=== PATIENT | female | born 1950 | race Caucasian/White ===

== ENCOUNTER 2025-05-23 14:16 | Outpatient (CLI) | payer MEDICARE, SELFPAY ==
--- OUTSIDE RECORDS SUMMARY | 2025-05-23 14:20 | XMS_ITS | Encounter Summary ---
Author Organization [facility] Address [address] [place] [address] Care Team Providers Care Welt Sole Layer Name Role Phone Unavailable Primary Care Provider Unavailabl e Encounter Details Date Type Department Care Team (Late st Contact Info) Description 08/10/2004 Historical Encounter Global Sarkis Nash MD Social History Tobacco Use Types Packs/Day Years Used Date Smoking Tobacco: Never Assessed Comments Unknown Sex and Gender Information Value Date Recorded Sex Assigned at Not on file Legal Sex Female 7:30 PM EST Gender Identity Not on file Sexual Orientation Not on file documented as of this encounter Plan of Treatment Not on file documented as of this encounter Visit Diagnoses Not on filedocumented in this encounter Additional Health Concerns Infection Onset Date Last Indicated Resolved Time Covid-19 (rule out) 02/20/2021 02/20/2021 02/22/20 21 3:01 AM EDT Covid-19 (confirmed) 04/12/2021 04/12/2021 021 10:12 PM EST documented as of this encounter
--- OUTSIDE RECORDS SUMMARY | 2025-05-23 14:20 | XMS_ITS | Encounter Summary ---
Author Organization [facility] Address [address] [place] [address] Care Team Providers Care Capacitor Tester Name Role Phone Unavailable Primary Care Provider Unavailabl e Encounter Details Date Type Department Care Team (Late st Contact Info) Description 11/04/2003 Historical Encounter Global Wil Eber Social History Tobacco Use Types Packs/Day Years [...]
--- OUTSIDE RECORDS SUMMARY | 2025-05-23 14:20 | XMS_ITS | Encounter Summary ---
Author Organization [facility] Address [address] [place] [address] Care Team Providers Care Family Health Nurse Practitioner Name Role Phone Unavailable Primary Care Provider Unavailabl e Encounter Details Date Type Department Care Team (Late st Contact Info) Description 02/17/2004 Historical Encounter Global Augusto Allen MD [facility]5 [facility] [address] [place] [address] Social History Tobacco Use Types Packs/Day Years [...]
--- OUTSIDE RECORDS SUMMARY | 2025-05-23 14:20 | XMS_ITS | Encounter Summary ---
Author Organization [facility] Address [address] [place] [address] Care Team Providers Care Urogynaecologist Name Role Phone Unavailable Primary Care Provider Unavailabl e Encounter Details Date Type Department Care Team (Late st Contact Info) Description 03/01/2004 Historical Encounter Global Augusto Allen MD [facility]5 [facility] [address] [place] [address] Social History Tobacco Use Types Packs/Day Years [...]
--- OUTSIDE RECORDS SUMMARY | 2025-05-23 14:20 | XMS_ITS | Encounter Summary ---
Author Organization [facility] Address [address] [place] [address] Care Team Providers Care Logistics Team Leader Name Role Phone Unavailable Primary Care Provider Unavailabl e Encounter Details Date Type Department Care Team (Late st Contact Info) Description 01/06/2004 [facility] [place] [place] Social History Tobacco Use Types Packs/Day Years [...]
--- OUTSIDE RECORDS SUMMARY | 2025-05-23 14:20 | XMS_ITS | Encounter Summary ---
Author Organization [facility] Address [address] [place] [address] Care Team Providers Care Ip Paralegal Name Role Phone Unavailable Primary Care Provider Unavailabl e Encounter Details Date Type Department Care Team (Late st Contact Info) Description 11/28/2004 Historical Encounter Global Sarkis Nash MD Social [...]
--- OUTSIDE RECORDS SUMMARY | 2025-05-23 14:20 | XMS_ITS | Encounter Summary ---
Author Organization [facility] Address [address] [place] [id number] Care Team Providers Care Advertising Associate Name Role Phone Unavailable Primary Care Provider Unavailabl e Reason for Referral * Radiology Services (Routine) - Closed Specialty Diagnoses / Procedures Referred By Contac t Referred To Contact Diagnoses Aneurysm, aorta, thoracic Procedures CT Angiogram Chest W WO Contrast Merline Anderson PA-C [address] [place] [address] Phone: tel: fax: Referral ID Status Reason Start Date Expiration Date Visits Re quested Visits Authorized [id number] Closed 01/18/2020 01/17/2021 1 1 Encounter Details Date Type Department Care Team (Latest Contact Info) Description 01/18/2020 Transcribe Orders [facility] [address] [place] [address] Merline Anderson PA-C [address] [place] [address] Aneurysm, aorta, thoracic (Primary Dx) Social History Tobacco Use Types Packs/Day Years Used Date Smoking Tobacco: Never Assessed Comments Unknown Sex and Gender Information Value Date Recorded Sex Assigned at Not on file Legal Sex Female 7:30 PM EST Gender Identity Not on file Sexual Orientation Not on file documented as of this encounter Plan of Treatment Scheduled Orders Name Type Priority Associated Diagnoses Orde r Schedule CT Angiogram Chest W WO Contrast Imaging Routine Aneurysm, Aorta, Thoracic 1 Occurrences starting 01/18/2020 until 01/17/2021 documented as of this encounter Visit Diagnoses Diagnosis Aneurysm, aorta, thoracic- Primary Thoracic aneurysm without mention of rupture documented in this encounter Additional Health Concerns Infection Onset Date Last Indicated Resolved Time Covid-19 (rule out) 02/20/2021 02/20/2021 02/22/20 21 3:01 AM EDT Covid-19 (confirmed) 04/12/2021 04/12/2021 021 10:12 PM EST documented as of this encounter
--- OUTSIDE RECORDS SUMMARY | 2025-05-23 14:21 | XMS_ITS | Encounter Summary ---
Author Organization [facility] Address [address] [place] [address] Care Team Providers Care Frame Stripper And Crusher Name Role Phone Unavailable Primary Care Provider Unavailabl e Encounter Details Date Type Department Care Team (Late st Contact Info) Description 07/16/2003 Historical Encounter Global Franklyn Marcos MD [address] [place] [address] Social History Tobacco Use Types Packs/Day Years [...] 21 3:01 AM EDT Covid-19 (confirmed) 04/12/2021 04/12/202107/11/ 021 10:12 PM EST documented as of this encounter
--- OUTSIDE RECORDS SUMMARY | 2025-05-23 14:21 | XMS_ITS | Encounter Summary ---
Author Organization [facility] Address [address] [place] [address] Care Team Providers Care Commercial Fisher Name Role Phone Unavailable Primary Care Provider Unavailabl e Encounter Details Date Type Department Care Team (Late st Contact Info) Description 07/19/2003 Historical Encounter Vinnie Duran Social History Tobacco Use Types Packs/Day Years [...]
--- OUTSIDE RECORDS SUMMARY | 2025-05-23 14:21 | XMS_ITS | Clinical Summary ---
Author Organization [facility] Address [address] [place] [address] Care Team Providers Care Chemical Research Technician Name Role Phone Unavailable Primary Care Provider Unavailabl e Social History Tobacco Use Types Packs/Day Years Used Date Smoking Tobacco: Never Assessed Comments Unknown Sex and Gender Information Value Date Recorded Sex Assigned at Not on file Legal Sex Female 7:30 PM EST Gender Identity Not on file Sexual Orientation Not on file Plan of Treatment Health Maintenance Due Date Last Done Comments COLOGUARD 1950 COLONOSCOPY 1950 Colorectal Screening Combination 1950 FIT 1950 HEP C SCREENING 1950 SIGMOIDOSCOPY 1950 ANNUAL WELLNESS EXAM 1953 DTAP/TDAP/TD VACCINE (1 - Tdap) 1969 PNEUMOCOCCAL VACCINE 65+ YEA RS (1 of 1 - PCV) 2000 Shingles Vaccine (Shingrix) (1 of 2) 2000 DEXA SCAN EVERY 2 YR (Osteop orosis Screen) 11/21/2015 INFLUENZA VACCINE (#1) 2025 HEP A VACCINE Aged Out No longer elig ible based on patient's age to complete this topic HIB VACCINE Aged Out No longer eligi ble based on patient's age to complete this topic ROTOVIRUS VACCINE Aged Out No longer eligible based on patient's age to complete this topic Insurance MEDICARE [place] [id number]
--- OUTSIDE RECORDS SUMMARY | 2025-05-23 14:21 | XMS_ITS | Encounter Summary ---
Author Organization [facility] Address [address] [place] [address] Care Team Providers Care Napkin Machine Operator Name Role Phone Unavailable Primary Care Provider Unavailabl e Encounter Details Date Type Department Care Team (Late st Contact Info) Description 10/15/2003 Historical Encounter Global Wil Eber Social History [...]
--- OUTSIDE RECORDS SUMMARY | 2025-05-23 14:21 | XMS_ITS | Clinical Summary ---
Author Organization [facility] Address [address] [place] [address] Care Team Providers Care Dietitian Research Name Role Phone Requested, Unlisted Smyer Primary Care Provider Unavailable Source Comments [facility] is fully rolled out with thefollowing exceptions:General Clinical Research [facility] Allergies Active Allergy Reactions Criticality Noted Date Comments Iodinated Diagnostic Agents 06/26/20 IV contrast Latex Blisters High 06/26/2018 Penicillins 06/26/2018 Sulfa Antibiotics 06/26/2018 Topamax 06/26/2018 Medications hydroCHLOROthiaz bear (ESIDRIX) 12.5 MG capsule Take 25 mg by mouth 1 time a day. Active aspirin (ASA) 325 MG tablet Take 325 mg by mouth 1 time a day. Active loratadine (CLARITIN) 10 MG tablet Take 10 mg by mouth 1 time a day. Active Family History Medical History Relation Name Comments ICD (Defibrillator) Brother 1 Other Brother 1 aortic rupture, aortic valve replacement Pacemaker Brother 1 Other Brother 2 brain aneursym Other Father CHF Heart Attack Maternal Uncle Heart Attack Mother Childhood Heart Disease Neg Hx Childhood heart surgery Neg Hx Relation Name Status Comments Brother 1 Brother 2 Father Maternal Uncle Mother Social History Tobacco Use Types Packs/Day Years Used Date Smoking Tobacco: Former Smokeless Tobacco: Never Intimate Partner Violence Answer Date R ecorded Safe in relationship? (up to 18) Not on file 06/26/2018 If you are in a relationship , do you feel safe in that relationship? Yes 06/26/2018 Safety and Environment Answer Date Rick rded Abuse or neglect worry (Parent/Guardian) Not on file 06/26/2018 Adult hurting you or family (11-18) Not on file 06/26/2018 Someone touched you in a sexual way? (07-12) Not on file 06/26/2018 Is someone hurting your or your family? No 06/26/2018 Historical abuse worry Not on file 8 If you have firearms in the home, are they all in locked storage AND unloaded? Not on file 06/26/2018 Comments Unknown Sex and Gender Information Value Date Recorded Sex Assigned at Not on file Legal Sex Female 11:27 AM EDT Gender Identity Not on file Sexual Orientation Not on file Last Filed Vital Signs Vital Sign Reading Time Taken Comments Blood Pressure 135/89 06/26/2018 10:47 AM EDT Pulse 75 06/26/2018 10:47 AM EDT Temperature - - Respiratory Rate 14 06/26/2018 10:47 AM EDT Oxygen Saturation - - Inhaled Oxygen Concentration - - Weight 84.9 kg (187 lb 2.7 oz) 06/26/2018 10:47 AM EDT Height 163.3 cm (5' 4.29 ) 06/26/2018 10:47 AM E DT Body Mass Index 31.84 06/26/2018 10:47 AM EDT Plan of Treatment Health Maintenance Due Date Last Done Comments MMR IMMUNIZATION (1 of 1 - S tandard series) 11/21/1951 DTAP/Tdap/Td IMMUNIZATION (1 - Tdap) 1957 VARICELLA IMMUNIZATION (1 of 2 - 13+ 2-dose series) 11/21/1963 AMB SEASONAL FLU VACCINE (#1) 04/25/2025 COVID-19 Vaccine ( - 2023-2 5 season) 2025 Respiratory Syncytial Virus (RSV) >60yo or (1 - 1-dose 75+ series) 2025 HEPATITIS B IMMUNIZATION Aged Out No longer eligible based on patient's age to complete this topic HIB IMMUNIZATION Aged Out No longer e ligible based on patient's age to complete this topic HPV IMMUNIZATION Aged Out No longer e ligible based on patient's age to complete this topic IPV IMMUNIZATION Aged Out No longer e ligible based on patient's age to complete this topic MCV4 IMMUNIZATION Aged Out No longer eligible based on patient's age to complete this topic MENINGOCOCCAL B VACCINE Aged Out No l onger eligible based on patient's age to complete this topic Respiratory Syncytial Virus (RSV) <20mo Aged Out No longer eligible b ased on patient's age to complete this topic Insurance MEDICARE Care Teams Dietitian Research Relationship Specialty Start Date End Date Requested, Unlisted Muna PCP - General HB Claims 06/26/18
== END 2025-05-23 23:59 | disposition home or self-care (01) ==
LOC: RT 14:18
PROVIDERS: Visit Provider Internal Medicine
DX: I48.91 Unspecified atrial fibrillation (principal); I49.3 Ventricular premature depolarization; I50.20 Unspecified systolic (congestive) heart failure; R94.31 Abnormal electrocardiogram [ECG] [EKG]
CPT/HCPCS: 93225; 93227

== ENCOUNTER 2025-05-25 11:53 | Outpatient (CLI) | payer MEDICARE, SELFPAY ==
--- OUTSIDE RECORDS SUMMARY | 2025-05-25 12:39 | XMS_ITS | Encounter Summary ---
Author Organization [facility] Address [address] [place] [address] Care Team Providers Care Eligibility Examiner Name Role Phone Unavailable Primary Care Provider Unavailabl e Encounter Details Date Type Department Care Team (Late st Contact Info) Description 02/17/2004 Historical Encounter Global Augusto Allen MD [facility]5 [facility] [address] [place] [address] Social History Tobacco Use Types Packs/Day Years [...]
--- OUTSIDE RECORDS SUMMARY | 2025-05-25 12:39 | XMS_ITS | Encounter Summary ---
Author Organization [facility] Address [address] [place] [address] Care Team Providers Care Braided Rug Maker Name Role Phone Unavailable Primary Care Provider [...]
--- OUTSIDE RECORDS SUMMARY | 2025-05-25 12:39 | XMS_ITS | Clinical Summary ---
Author Organization [facility] Address [address] [place] [address], [address] [place] [address] Care Team Providers Care Catheter Builder Name Role Phone Unavailable Primary Care Provider Unavailabl e Social History Tobacco Use Types Packs/Day Years Used Date Smoking Tobacco: Never Assessed Comments Unknown Sex and Gender Information Value Date Recorded Sex Assigned at Not on file Legal Sex Female 5:00 PM EST Gender Identity Not on file Sexual Orientation Not on file Plan of Treatment Not on file
--- OUTSIDE RECORDS SUMMARY | 2025-05-25 12:39 | XMS_ITS | Encounter Summary ---
Author Organization [facility] Address [address] [place] [address] Care Team Providers Care Case Preparer And Liner Name Role Phone Unavailable Primary Care Provider Unavailabl e Encounter Details Date Type Department Care Team (Late st Contact Info) Description 03/01/2004 Historical Encounter Global Augusto Allen MD [facility] [place] [address] Social History Tobacco Use Types Packs/Day Years [...]
--- OUTSIDE RECORDS SUMMARY | 2025-05-25 12:39 | XMS_ITS | Encounter Summary ---
Author Organization [facility] Address [address] [place] [address] Care Team Providers Care Bone Process Operator Name Role Phone Unavailable Primary Care Provider Unavailabl e Encounter Details Date Type Department Care Team (Late st Contact Info) Description 07/16/2003 Historical Encounter Global Franklyn Marcos MD [address] [place] [address] Social History Tobacco Use Types [...]
--- OUTSIDE RECORDS SUMMARY | 2025-05-25 12:39 | XMS_ITS | Encounter Summary ---
Author Organization [facility] Address [address] [place] [phone] Care Team Providers Care Driver Trainer Name Role Phone Unavailable Primary Care Provider Unavailabl e Reason for Referral * Radiology Services (Routine) - Closed Specialty Diagnoses / Procedures Referred By Contac t Referred To Contact Diagnoses Aneurysm, aorta, thoracic Procedures CT Angiogram Chest W WO Contrast Merline Anderson PA-C [address] [place] [address] Phone: tel: fax: Referral ID Status Reason Start Date Expiration Date Visits Re quested Visits Authorized [id number] Closed 01/18/2020 01/17/2021 1 1 Encounter Details Date Type Department Care Team (Latest Contact Info) Description 01/18/2020 Transcribe Orders Patient Access Center [address] [place] [address] Merline Anderson PA-C [address] [place] [address] Aneurysm, aorta, thoracic (Primary Dx) [...]
--- OUTSIDE RECORDS SUMMARY | 2025-05-25 12:39 | XMS_ITS | Clinical Summary ---
Author Organization [facility] Address [address] [place] [address] Care Team Providers Care Jailer Name Role Phone Requested, Unlisted Myrtle Primary Care Provider Unavailable Source Comments [facility] is fully rolled out with thefollowing exceptions:General Clinical Research [facility] Allergies Active Allergy Reactions Criticality Noted Date [...] complete this topic Insurance MEDICARE Care Teams Jailer Relationship Specialty Start Date End Date Requested, Unlisted Muna PCP - General HB Claims 06/26/18
--- OUTSIDE RECORDS SUMMARY | 2025-05-25 12:39 | XMS_ITS | Encounter Summary ---
Author Organization [facility] Address [address] [place] [address] Care Team Providers Care Project Inspector Name Role Phone Unavailable Primary Care Provider Unavailabl e Encounter Details Date Type Department Care Team (Late st Contact Info) Description 01/06/2004 [facility] [place] [place] Social History Tobacco Use Types Packs/Day [...]
--- OUTSIDE RECORDS SUMMARY | 2025-05-25 12:39 | XMS_ITS | Encounter Summary ---
Author Organization [facility] Address [address] [place] [address] Care Team Providers Care Senior Electrical Project Manager Name Role Phone Unavailable Primary Care Provider [...]
--- OUTSIDE RECORDS SUMMARY | 2025-05-25 12:39 | XMS_ITS | Clinical Summary ---
Author Organization [facility] Address [address] [place] [address] Care Team Providers Care Bus Driver Supervisor Name Role Phone Unavailable Primary Care Provider [...] age to complete this topic Insurance MEDICARE [place] [id number]
--- OUTSIDE RECORDS SUMMARY | 2025-05-25 12:39 | XMS_ITS | Encounter Summary ---
Author Organization [facility] Address [address] [place] [address] Care Team Providers Care Final Block Press Operator Name Role Phone Unavailable Primary Care [...]
--- OUTSIDE RECORDS SUMMARY | 2025-05-25 12:39 | XMS_ITS | Encounter Summary ---
Author Organization [facility] Address [address] [place] [address] Care Team Providers Care Parts Consultant Name Role Phone Unavailable Primary Care Provider [...]
--- OUTSIDE RECORDS SUMMARY | 2025-05-25 12:40 | XMS_ITS | Encounter Summary ---
Author Organization [facility] Address [address] [place] [address] Care Team Providers Care Neurology Epilepsy Physician Name Role Phone Unavailable Primary Care Provider [...]
== END 2025-05-25 23:59 | disposition home or self-care (01) ==
LOC: RT 11:54
PROVIDERS: PCP Nurse Practitioner Pediatrics; Visit Provider Internal Medicine
DX: I48.91 Unspecified atrial fibrillation (principal); I49.3 Ventricular premature depolarization; I47.29 Other ventricular tachycardia; R94.31 Abnormal electrocardiogram [ECG] [EKG]; I50.20 Unspecified systolic (congestive) heart failure
CPT/HCPCS: 93270

== ENCOUNTER 2025-06-13 12:55 | Outpatient (CLI) | payer MEDICARE, SELFPAY ==
--- NOTE | 2025-06-13 13:45 | CA_ITS ---
APPROVED REPORT EXAM: Comprehensive 2D, Doppler, and color-flow Echocardiogram Associate Professor Of Psychology: Concetta Holm RT(R) Ht: 5 ft 6 in Wt: 169lbs BSA: 1.86 BP: 180/102 mmHg Indications: abnormal EKG, [place], AFIB, AAA 2D Dimensions LA Volume 64.80 mL LA Volume Index 34.84 mL/m2 (M/F) 16-34 EF AP4 45.80 % GL Strain -13.3 % M-Mode Dimensions RVDd 2.92 cm (0.9-2.6) LA Diam 2.60 cm (1.9-4.0) LVDd 5.05 cm (3.5-5.7) LVDs 3.53 cm (3.5-5.7) IVSd 0.57 cm (0.6-1.1) PWd 0.53 cm (0.6-1.1) EF (Teich) 57.10% FS 30.10% EDV (Teich) 121.00 mL ESV (Teich) 51.90 mL Tricuspid Valve TR P. Velocity 292.00 cm/s RAP Estimate 10.00 mmHg RVSP 44.00 mmHg Left Ventricle The left ventricle is normal size. Left ventricular systolic function is normal. The left ventricular ejection fraction is within the normal range. There is increased left ventricular wall thickness. There is normal LV segmental wall motion. The left ventricular diastolic function is normal. LVEF is 55%. Right Ventricle The right ventricle is mildly dilated. The right ventricular systolic function is normal. Atria The left atrium is moderately dilated. The right atrium is moderately dilated. There is no color Doppler evidence of interatrial shunt. Aortic Valve The aortic valve is mildly thickened. There is no hemodynamically significant aortic valvular stenosis. Trace aortic regurgitation is present. Mitral Valve The mitral valve is normal in structure. No evidence of mitral valve stenosis. Mild mitral regurgitation is present. Tricuspid Valve The tricuspid valve leaflets are thin and pliable. Mild tricuspid regurgitation. RVSP is 30-35 mmHg. Pulmonic Valve The pulmonary valve is grossly normal in structure. Mild pulmonic valve regurgitation is present. Great Vessels The aortic root is normal in size. IVC is normal in size and collapses >50% with inspiration. Pericardium There is no pericardial effusion. Other Information Study Quality: Fair Conclusion Normal biventricular systolic function. Mild RV dilation. Biatrial dilation. Mild MR, mild TR, mild PI. Electronically signed by : Christina Lauren MD 06/14/2025 00:46:48
== END 2025-06-13 23:59 | disposition home or self-care (01) ==
PROVIDERS: PCP Nurse Practitioner Pediatrics; Visit Provider Internal Medicine
DX: I08.8 Other rheumatic multiple valve diseases (principal); I50.20 Unspecified systolic (congestive) heart failure; R94.31 Abnormal electrocardiogram [ECG] [EKG]; I48.91 Unspecified atrial fibrillation; Q79.60 Ehlers-Danlos syndrome, unspecified; I71.40 Abdominal aortic aneurysm, without rupture, unspecified
CPT/HCPCS: 93306